=== PATIENT | female | born 1995 | race Two or more races ===

== ENCOUNTER 2022-09-22 22:00 | Emergency (ER) | payer BC ==
--- NOTE | 2022-09-22 22:45 | NUR ---
Patient was just called to be triaged at this time due to triaged nurse having two patient and other 2 nurse had full assignment, but patient was not present in the waiting room or outside of ER.
--- NOTE | 2022-09-22 23:15 | NUR ---
Patient was called to be triaged but was not present in the waiting room or outside of ER.
--- NOTE | 2022-09-22 23:45 | NUR ---
Patient was called to be triaged but was not present in the waiting room or outside of ER. PATIENT WAS NOT TRIAGED OR SEEN BY ERMD.
== END 2022-09-22 23:46 | disposition left against medical advice (07) ==
LOC: ER 22:05
DX: Z53.21 Procedure and treatment not carried out due to patient leaving prior to being seen by health care provider (principal)